=== PATIENT | female | born 1960 ===

== ENCOUNTER 2022-03-22 12:28 | Observation (INO) ==
[~2022-03-22 12:28] MED LIST: Acetaminophen IV 1 GM/100ML 1,000 MG/100 ML BAG IV ONE; Buffered Lidocaine 1% SYRIN 1 ml INTRADERM ONE; Dexamethasone IV 4 MG/ML VIAL 1 ml VIAL ONE; Lactated Ringers 1000 ml BAG 1,000 ML IV SCH; Lidocaine 2% PF 5 ML VIAL ONE; Midazolam 2 mg/2 ml VIAL 1 mg/ml 2 ml VIAL (2 mg) ONE; Ondansetron 4 mg VIAL 2 MG/ML 2 ml VIAL ONE; Propofol 10 MG/ML 20 ML BTL ONE; Rocuronium 50 mg VIAL 10 mg/ml 5 ml VIAL (50 mg) ONE; Sterile Water for Inj 10 ML ONE; fentaNYL 100 mcg/2 ml 50 MCG/ML VIAL ONE
[2022-03-22] MEDS ORDERED: Chlorhexidine MOUTHWASH 0.12% 15 ML UDC ONE (12:44)
[2022-03-22] MEDS ORDERED: ceFAZolin 2 GM PREMIX 2 GM/50 ML BAG ONE (12:57)
[2022-03-22] MEDS ORDERED: Thrombin 5,000 UNITS 1 APPLIC KIT - topical use - TOPICAL ONE (13:38)
[2022-03-22] MEDS ORDERED: Gelfoam 12-7 ADSORBABL SPONGE ONE (13:39)
[2022-03-22] MEDS ORDERED: ceFAZolin VIAL VIAL ONE ×2 (13:40→14:09)
[2022-03-22] MEDS ORDERED: Prochlorperazine 5 mg/ml 2 ml VIAL (10 mg) IV PRN (14:04)
[2022-03-22] MEDS ORDERED: Naloxone 0.4 mg VIAL 0.4 mg/ml 1 ml VIAL IV PRN (14:04)
[2022-03-22] MEDS ORDERED: Gelfoam Sponge SIZE 100 SPONGE ONE (14:09)
[2022-03-22] MEDS ORDERED: Ondansetron 4 mg VIAL 2 MG/ML 2 ml VIAL IV PRN (15:40)
[2022-03-22] MEDS ORDERED: Magnesium Hydroxide LIQ 30 ML UDC PO PRN (15:40)
[2022-03-22] MEDS ORDERED: Albuterol HFA INHALER 8 gm MDI INH PRN (15:45)
[2022-03-22] MEDS ORDERED: fentaNYL 100 mcg/2 ml 50 MCG/ML VIAL ONE (15:56)
[2022-03-22] MEDS: fentaNYL 100 mcg/2 ml 50 MCG/ML VIAL IV PRN ×2 (15:58→16:08)
[2022-03-22] MEDS ORDERED: Lactated Ringers 1000 ml BAG 1,000 ML IV SCH (16:00)
[2022-03-22] MEDS ORDERED: HYDROcodone/ACETAMIN 5/325 mg TAB PO PRN (16:18)
[2022-03-23] MEDS: Mometasone/Formoter 200/5 MDI INH SCH ×2 (01:10→08:40)
[2022-03-23 08:11] VITALS: BP 110/55
[2022-03-23] MEDS ORDERED: Fluticasone NASAL SPRAY 50MCG 16 gm SPRAY BTL INTRANASAL SCH (09:00)
== END 2022-03-23 10:30 | disposition home or self-care (01) ==
LOC: OR 12:28 → SSU 12:28
PROVIDERS: ADMIT Neurological Surgery; ATTEND Neurological Surgery